=== PATIENT | female | born 1990 | race Caucasian/White ===

== ENCOUNTER 2019-07-06 19:54 | Emergency (ER) | payer MEDICAID, SELFPAY ==
[2019-07-06 20:00] VITALS: BP 135/95; PULSE 116; RESP 16; O2SAT 100
[2019-07-06 20:31] LABS: Add Urine Microscopic? NO; Appearance Urine Clear (Clear); Bilirubin Urine Negative (Negative); Blood Urine Negative (Negative); Color Urine Straw (Yellow); Glucose Urine UA Negative (Negative); Ketones Urine Negative (Negative); Leukocyte Esterase Ur Negative LEU/UL (Negative); Nitrate Urine Negative (Negative); Protein Urine Negative (Negative); Urobilinogen Urine 0.2 mg/dL (0.2-1.0)
--- NOTE | 2019-07-06 23:11 | PC.NURSE ---
ERP in with patient.
--- NOTE | 2019-07-06 23:21 | ED.GENADULT ---
HPI - General Adult General Chief complaint: Unspecified Stated complaint: swelling in arm and legs recent surgery Source: patient Mode of arrival: ambulatory Limitations: no limitations History of Present Illness HPI narrative: Hysterectomy five days ago. On June 12 she developed pain and discoloration in the right antecubital area where an IV had been in place. The pain has become worse and has enlarged to include her proximal forearm and distal medial arm. Also for the last day she has noticed some swelling in her ankles that she has never had before. She denies leg pain, chest pain and shortness of breath. She has been spending most of her time sitting in a chair per nurse practitioner orders. She now has no history of DVTs and states she was not getting daily s.c. injections of a blood thinner. Related Data Home Medications Medication Instructions Recorded Confirmed hydrocodone-acetaminophen 1 tablet PO QID PRN 07/06/19 07/06/19 ibuprofen 600 mg PO TID PRN 07/06/19 07/06/19 sennosides [Senna Lax] 8.6 mg PO HS PRN 07/06/19 07/06/19 Allergies Allergy/AdvReac Type Severity Reaction Status Date / Time No Known Allergies Allergy Verified 07/06/19 20:22 Review of Systems Constitutional: Constitutional: Denies chills and Denies fever(s) Cardiovascular: Cardiovascular: Denies chest pain Respiratory: Respiratory: Denies cough and Denies dyspnea Gastrointestinal: Gastrointestinal: Reports abdominal pain (Lower abdominal pain since surgery has been mild. ) Integumentary/Breasts: Skin/Breast: Reports system reviewed and no additional complaints, except as docu and Reports rash Exam GI: Other: Abdomen is obese. There is a bruising around the laparoscopic incision sites at the umbilicus in the right lower quadrant. the lower abdomen is tender to deep palpation, no palpable masses. Skin: Other: dusky red patch measuring approximately 20 cm along the medial aspect of the proximal forearm and distal arm on the left side. There are tender, palpable, firm cords along the medial proximal right forearm extending [facility] up the distal half of the medial arm There is no axillary tenderness. Extrem: General: edema (1+ ankle edema. No swelling or tendness of calf of thigh regions. ) Other: She has 1+ ankle edema bilateral. Course Course Emergency Course: the tender cords in the left antecubital area are thrombosed veins which extend up the medial arm. It is possible deeper veins could be involved. Has resolved I recommended starting subcu anticoagulants, symptomatic treatment and ultrasound tomorrow morning then seeing her primary care provider in the afternoon. The anticoagulant will be helpful for pain relief in treating just superficial thrombophlebitis. There are no signs or symptoms which suggest a pulmonary embolus Vital Signs Vital signs: Vital Signs Pulse Rate 116 H 07/06/19 20:00 Respiratory Rate 16 07/06/19 20:00 Blood Pressure 135/95 H 07/06/19 20:00 Pulse Oximetry 100 07/06/19 20:00 Pulse Rate 105 H 07/06/19 23:58 Respiratory Rate 20 07/06/19 23:58 Blood Pressure 117/69 07/06/19 23:58 Pulse Oximetry 98 07/06/19 23:58 Medical Decision Making MDM Narrative Medical decision making narrative: She has thrombophlebitis likely secondary to IV catheter from the left arm. Pedal edema is likely secondary to immobility post hysterectomy. Vital Signs Vital Signs: Vital Signs Pulse Rate 116 H 07/06/19 20:00 Respiratory Rate 16 07/06/19 20:00 Blood Pressure 135/95 H 07/06/19 20:00 Pulse Oximetry 100 07/06/19 20:00 Pulse Rate 105 H 07/06/19 23:58 Respiratory Rate 20 07/06/19 23:58 Blood Pressure 117/69 07/06/19 23:58 Pulse Oximetry 98 07/06/19 23:58 Lab Data Labs: Lab Results 07/06/19 Range/Units 20:25 Urine Color Straw (Yellow) Urine Appearance Clear (Clear) Urine pH 6.0 (5.0-8.0) Ur Specific [place] 1.010 (1.010-1.020)
[2019-07-06] MEDS: ENOXAPARIN 100 MG/ML SYRINGE (23:23)
--- NOTE | 2019-07-06 23:27 | PC.NURSE ---
[id number] introduced self, resumed care from MARY CARMEN Chappell. erp requested ultrasound in am. pt given time options. xray notified to schedule appointment for 10am. miguel a in xray will adjust schedule.
[2019-07-06 23:58] VITALS: BP 117/69; PULSE 105; RESP 20; O2SAT 98
== END 2019-07-07 00:01 | disposition home or self-care (01) ==
LOC: CHSED 19:59
PROVIDERS: Emergency Provider Family Medicine; PCP Family Medicine
DX: T80.1XXA Vascular complications following infusion, transfusion and therapeutic injection, initial encounter (principal); I80.8 Phlebitis and thrombophlebitis of other sites
CPT/HCPCS: 81003; 96372; 99283; J1650

== ENCOUNTER 2019-07-07 09:55 | Outpatient (CLI) | payer MEDICAID, SELFPAY ==
--- NOTE | ~2019-07-07 | US_ITS ---
EXAMINATION: US venous doppler UE RT DATE: 07/07/2019 10:38 INDICATION: Right upper limb pain. TECHNIQUE: Grayscale ultrasound images without and with compression and Doppler ultrasound images of the right upper extremity veins were obtained. COMPARISON: None. FINDINGS: The visualized portions of the right internal jugular vein, subclavian vein, axillary vein, brachial veins, cephalic vein, radial vein, and ulnar vein are patent. There is thrombus in right basilic vein . IMPRESSION: 1. No deep venous thrombosis. 2. Thrombus in right basilic vein, which is a superficial vein. Reviewed, dictated and finalized at location A.
== END 2019-07-07 09:56 | disposition home or self-care (01) ==
PROVIDERS: PCP Family Medicine; Visit Provider Family Medicine
DX: I80.8 Phlebitis and thrombophlebitis of other sites (principal)
CPT/HCPCS: 93971

== ENCOUNTER 2019-10-21 20:21 | Emergency (ER) | payer OTHER, SELFPAY ==
--- NOTE | ~2019-10-21 | CT_ITS ---
EXAMINATION: CT abdomen pelvis w con DATE: 10/21/2019 22:17 INDICATION: Right lower quadrant abdominal pain. TECHNIQUE: Computed tomography (CT) of the abdomen and pelvis was performed with 100 mL Omnipaque 350 intravenous contrast. Automated exposure control and iterative reconstruction technique were employe d. The dose-length product was 1430.78 mGy-cm. COMPARISON: CT abdomen and pelvis 05/10/2015 FINDINGS: The visualized portions of the lung bases demonstrate mild atelectasis. No pleural effusion . There is a large sliding hiatal hernia. The heart size is normal. No pericardial effusion. The live r is normal. There are changes of cholecystectomy. The spleen, pancreas, adrenal glands, and kidneys are normal. There are no dilated loops of bowel. The appendix is normal. There are no pathologically enlarged lymph nodes. There is no free intraperitoneal fluid. There is chronic anterior wedging of mu ltiple lower thoracic vertebral bodies. There is moderate thoracic spondylosis and mild lumbar spondy losis. IMPRESSION: 1. Large sliding hiatal hernia. Reviewed, dictated and finalized at location A.
[2019-10-21 20:45] VITALS: BP 141/79; PULSE 110; RESP 16; TEMP 37.1; O2SAT 100
--- NOTE | 2019-10-21 20:58 | ED.ABDPAIN ---
HPI - Abdominal Pain General Chief Complaint: Urogenital-Female Stated Complaint: pain in lower abd/lower back pain Time Seen by Provider: 10/21/19 20:59 Source: patient Mode of arrival: ambulatory Limitations: no limitations History of Present Illness HPI narrative: 29-year-old woman comes in today complaining of right-sided abdominal and flank pain that started last night. Patient states that her pain has gotten progressively worse and comes and goes. She states she is now having some low back pain with it. She denies fever, nausea, vomiting, diarrhea, dysuria, hematuria, history kidney stones, or sick exposures. She is status post hysterectomy and cholecystectomy. MD elicited complaint: abdominal pain Onset (ago): day(s) (1) Pain Consistency: constant Location: RLQ Quality: sharp Radiation: back Migration to: no migration Exacerbating factors: nothing Relieving factors: nothing Related Data Home Medications Medication Instructions Recorded Confirmed No Home Medications 10/21/19 10/21/19 Allergies Allergy/AdvReac Type Severity Reaction Status Date / Time fentanyl AdvReac Intermediate Unknown Verified 10/21/19 21:55 morphine AdvReac Intermediate Unknown Verified 10/21/19 21:55 tramadol AdvReac Intermediate Unknown Verified 10/21/19 21:55 Review of Systems Constitutional: Constitutional: Reports chills and Denies fever(s) Eyes: Eyes: Denies change in vision and Denies photophobia ENT: Denies dysphagia, Denies nasal congestion and Denies sore throat Cardiovascular: Cardiovascular: Denies chest pain and Denies radiating jaw, neck or arm pain Respiratory: Respiratory: Denies cough, Denies dyspnea and Denies wheezing Gastrointestinal: Gastrointestinal: Reports as per HPI, Reports abdominal pain, Denies constipation, Denies diarrhea, Denies nausea and Denies vomiting Genitourinary: Genitourinary: Denies hematuria, Denies nocturia and Denies dysuria Musculoskeletal: Musculoskeletal: Denies back pain, Denies arthralgias and Denies joint swelling Integumentary/Breasts: Skin/Breast: Denies pruritus, Denies erythema and Denies rash Neurologic: Denies vertigo, Denies dizziness and Denies syncope Endocrine: Endocrine: Denies polydipsia and Denies polyuria Hematologic/Lymphatic: Hematologic/Lymphatic: Denies easy bleeding and Denies easy bruising Allergic/Immunologic: Allergic/Immunologic: Denies lip swelling and Denies wheezing PMFSH Surgical History Surgical History (Updated 10/21/19 @ 22:46 by Roland Wang MD) H/O: hysterectomy S/P cholecystectomy Social History Social History (Updated 10/21/19 @ 22:46 by Roland Wang MD) Smoking status: Current every day smoker Alcohol intake: never Substance use: never Living arrangements: with family Discharge Plan Discharge Clinical Impression: Abdominal pain Qualifiers: Abdominal location: unspecified location Qualified Code(s): R10.9 - Unspecified abdominal pain Patient Disposition: Home, Self-Care Condition: Stable Instructions: Abdominal Pain (ED) Additional Instructions: Drink plenty of fluids and rest. Follow up with your doctor in the next 48 hours. If you have vomiting, worsening symptoms or new, concerning symptoms, return to the Emergency Department. Prescriptions: No Action No Home Medications RF: 0 Follow-up/Referrals: Franklyn Michele M.D. [Primary Care Provider] - Stand Alone Forms: Work/School Release IP Time of Disposition: 22:49
[2019-10-21 21:04] LABS: Add Urine Microscopic? YES; Appearance Urine Clear (Clear); Bilirubin Urine Negative (Negative); Blood Urine Negative (Negative); Color Urine Yellow (Yellow); Glucose Urine UA Negative (Negative); Ketones Urine Trace (Negative); Leukocyte Esterase Ur Negative (Negative); Nitrate Urine Negative (Negative); Protein Urine Negative (Negative); Specific Grav Ur 1.025 (1.010-1.020); pH Urine 6.5 (5.0-8.0)
[2019-10-21 21:11] LABS: RBC Urine 0-2 /hpf (0-2); Squamous Epithelial Cell Urine Many /hpf (Few); WBC Urine 0-3 /hpf (0-3)
[2019-10-21 21:12] LABS: Bacteria Urine 1+ /hpf; Mucus Urine Few /lpf
[2019-10-21] MEDS: KETOROLAC (*BKC) 60 MG/2 ML VIAL IM (21:22)
[2019-10-21 21:24] LABS: Basophils Absolute Auto 0.05 K/mm3 (0.00-0.10); Basophils Percent Auto 0.6 % (0.0-1.0); Eosinophils Absolute Auto 0.42 K/mm3 (0.02-0.50); Hemoglobin 11.2 g/dL (12.0-15.0); Immature Granulocyte Absolute 0.03 K/mm3 (0.00-0.00); Immature Granulocyte Percent A 0.4 % (0.0-0.0); Lymphocytes Absolute Auto 2.96 K/mm3 (1.10-4.50); Lymphocytes Percent Auto 35.1 % (18.0-42.0); Mean Corpuscular HGB Conc 31.1 g/dL (32.0-36.0); Mean Corpuscular Hemoglobin 24.8 pg (27.0-31.0); Mean Corpuscular Volume 79.8 fL (78.0-102.0); Mean Platelet Volume 9.1 fl (9.2-11.8); Monocytes Absolute Auto 1.13 K/mm3 (0.10-0.90); Monocytes Percent Auto 13.4 % (2.0-11.0); Neutrophils Absolute Auto 3.9 K/mm3 (1.7-7.2); Neutrophils Percent Auto 45.5 % (50.0-70.0); Platelet Count Result 365 K/mm3 (150-420); Red Blood Count 4.51 M/mm3 (4.20-5.40); Red Cell Distribution Width 17.8 % (11.6-14.4); White Blood Count 8.4 K/mm3 (4.8-10.8)
[2019-10-21 21:37] LABS: Partial Thromboplastin Time 25.7 SEC (22.3-31.6); Prothrombin Time 10.6 Seconds (9.64-11.0)
[2019-10-21 21:38] LABS: Alanine Aminotransferase 14 U/L (14-59); Alkaline Phosphatase 85 U/L (46-116); Anion Gap 11 mmol/L (8-16); Aspartate Amino Transferase < 10 U/L (15-37); Bilirubin,Total 0.1 mg/dL (0.00-1.00); Blood Urea Nitrogen 7 mg/dL (7-18); Calcium 8.3 mg/dL (8.5-10.1); Carbon Dioxide 25 mmol/L (21-32); Chloride 106 mmol/L (98-108); Estimated Glomerular Filt Rate > 60; Glucose 91 mg/dL (70-99); Lipase 110 U/L (73-393); Osmolality Calculated 292 mOsm/kg (285-295); Potassium 3.9 mmol/L (3.5-5.1); Sodium 142 mmol/L (136-145); Total Protein 6.6 g/dL (6.4-8.2)
[2019-10-21] MEDS: HYDROmorphone HCL 2 MG/ML VIAL 0.5 MG IV PUSH (22:52)
[2019-10-21] MEDS: ONDANSETRON INJ 4 MG/2 ML VIAL IV PUSH (22:53)
[2019-10-21 23:00] VITALS: BP 118/77
== END 2019-10-21 23:02 | disposition home or self-care (01) ==
PROVIDERS: Emergency Provider Emergency Medicine; PCP Family Medicine
DX: R10.9 Unspecified abdominal pain (principal)
CPT/HCPCS: 36415; 74177; 80053; 81001; 83690; 85025; 85610; 85730; 96372; 96374; 96375; 99282; 99284; J1170; J1885; J2405; Q9965

== ENCOUNTER 2021-04-03 09:04 | Emergency (ER) | payer SELFPAY ==
[2021-04-03 09:05] VITALS: BP 133/85; PULSE 86; RESP 20; TEMP 36.3; O2SAT 100
--- NOTE | 2021-04-03 09:18 | ED.BACK ---
HPI - Back Pain/Injury General Chief Complaint: Back Pain/Injury Stated Complaint: Back Pain and right arm Source: patient and RN notes reviewed Mode of arrival: ambulatory Limitations: no limitations History of Present Illness MD elicited complaint: back pain Pertinent past history: prior back pain Timing: constant Severity: moderate Quality: dull and aching Location: lumbar spine Radiation: none Exacerbating factors: movement and walking Relieving factors: none Context: other (No injury) Associated symptoms: denies other symptoms Related Data Home Medications Medication Instructions Recorded Confirmed No Home Medications 10/21/19 04/03/21 Allergies Allergy/AdvReac Type Severity Reaction Status Date / Time fentanyl AdvReac Intermediate Unknown Verified 10/21/19 21:55 morphine AdvReac Intermediate Unknown Verified 10/21/19 21:55 tramadol AdvReac Intermediate Unknown Verified 10/21/19 21:55 Review of Systems Review of Systems: All systems reviewed & are unremarkable except as noted in HPI and below Constitutional: Constitutional: Denies chills, Denies fever(s) and Denies weakness Gastrointestinal: Gastrointestinal: Reports nausea (when she has pain) Musculoskeletal: Musculoskeletal: Reports as per HPI [facility] Surgical History Surgical History H/O: hysterectomy S/P cholecystectomy Social History Social History Smoking status: Current every day smoker Alcohol intake: never Substance use: never Exam Const: General: healthy appearing and no acute distress Nutritional Appearance: obese Orientation/consciousness: patient oriented x3 HENMT: Head: normal to inspection Ears: external ears normal Eyes: Conjunctivae: conjunctivae normal Pupils: Equal, round and reactive pupils present EOM: EOMs intact bilaterally Resp: Effort & Inspection: normal respiratory effort Auscultation: clear to auscultation bilaterally Cardio: Rate: regular rate Rhythm: regular rhythm GI: GI Palp: Yes Soft to palpation and No Tenderness to palpation present (GI) Auscultation: normal bowel sounds Back/Spine/Pelvis: Cervical Spine: cervical ROM normal Thoracic/Lumbar Spine: straight leg raise negative bilaterally, pain with thoraco-lumbar ROM, paraspinal muscle tenderness bilaterally in the lower lumbar and thoraco-lumbar spasm bilaterally in the lower lumbar Skin: General skin exam: normal color Rashes: no rashes Neuro: General: patient oriented x3, moves all extremities, no meningeal signs, no focal motor deficits and CN's II-XI intact bilaterally Speech: normal speech Extrem: General: normal to inspection and no clubbing, cyanosis or edema Psych: Appearance: grossly normal and well kempt Mental Status: mental status grossly normal Affect: normal affect Attitude: cooperative Thought content: Yes Normal thought content present Course Vital Signs Vital signs: Vital Signs Temperature 36.3 C L 04/03/21 09:05 Pulse Rate 86 04/03/21 09:05 Respiratory Rate 20 04/03/21 09:05 Blood Pressure 133/85 04/03/21 09:05 Pulse Oximetry 100 04/03/21 09:05 Temperature 36.3 C L 04/03/21 09:31 Pulse Rate 86 04/03/21 09:31 Respiratory Rate 20 04/03/21 09:31 Blood Pressure 133/85 04/03/21 09:31 Pulse Oximetry 98 04/03/21 09:31 Discharge Plan Discharge Clinical Impression: Chronic bilateral low back pain Qualifiers: Sciatica presence: without sciatica Qualified Code(s): M54.50 - Low back pain, unspecified Patient Disposition: Home, Self-Care Condition: Improved Instructions: Back Pain (ED), Lower Back Exercises (ED) Additional Instructions: follow-up with her primary care if stronger pain medicine needed to control your back pain. Recommend using ibuprofen 600 mg 3 times a day as needed for back pain. Prescriptions: No Action No Home Medications RF: 0
[2021-04-03] MEDS: ORPHENADRINE CITRATE 30 MG/ML 2 ML VIAL 60 MG IM (09:30)
[2021-04-03 09:31] VITALS: BP 133/85; PULSE 86; RESP 20; TEMP 36.3; O2SAT 98
[2021-04-03] MEDS: KETOROLAC (*BKC) 60 MG/2 ML VIAL IM (09:31)
== END 2021-04-03 09:32 | disposition home or self-care (01) ==
PROVIDERS: Emergency Provider Emergency Medicine; PCP Family Medicine
DX: M54.50 Low back pain, unspecified (principal)
CPT/HCPCS: 96372; 99284; J1885; J2360

== ENCOUNTER 2021-06-13 21:22 | Emergency (ER) | payer SELFPAY ==
--- NOTE | ~2021-06-13 | CT_ITS ---
EXAMINATION: CT abdomen pelvis w con DATE: 06/13/2021 22:48 INDICATION: upper abdominal pain, epigastric pain TECHNIQUE: Computed tomography (CT) of the abdomen and pelvis was performed with 100 mL Omnipaque-300 intravenous contrast. Automated exposure control and iterative reconstruction technique were employe d. The dose-length product was 1033.05 mGy-cm. COMPARISON: 10/21/2019. FINDINGS: Lower thorax: Large hiatal hernia. Liver: Normal. Biliary/Gallbladder: Gallbladder is normal. Mild intrahepatic and extra hepatic biliary duct dilatati on, likely secondary to prior cholecystectomy. Spleen: Normal. Pancreas: No mass or duct dilation. Adrenals:No mass. Kidneys: No mass, stone, or hydronephrosis. GI tract: No small or large bowel dilation. Normal appendix. Mesentery/Peritoneum: No ascites, mass, or free air. Retroperitoneum: No mass. Pelvis: Uterus is absent, otherwise pelvic organs are within normal limits. Soft Tissues: Soft tissues and body wall unremarkable. Bones: No acute osseous finding. IMPRESSION: No acute abdominopelvic process. Reviewed, dictated and finalized at location K.
[2021-06-13 21:30] VITALS: BP 137/86; PULSE 74; RESP 20; TEMP 36.1; O2SAT 99
--- NOTE | 2021-06-13 21:44 | ED.ABDPAIN ---
HPI - Abdominal Pain General Chief Complaint: Abdominal Pain Stated Complaint: stomach pain to back pain Time Seen by Provider: 06/13/21 21:44 Source: patient and RN notes reviewed Mode of arrival: ambulatory Limitations: no limitations History of Present Illness MD elicited complaint: abdominal pain Pertinent past history: none Onset (ago): minute(s) (30) Pain Consistency: constant Location: epigastric, LUQ and RUQ Severity: severe Quality: stabbing and sharp Radiation: none Migration to: no migration Exacerbating factors: movement Relieving factors: nothing Associated symptoms: nausea Related Data Allergies Allergy/AdvReac Type Severity Reaction Status Date / Time fentanyl AdvReac Intermediate Unknown Verified 10/21/19 21:55 morphine AdvReac Intermediate Unknown Verified 10/21/19 21:55 tramadol AdvReac Intermediate Unknown Verified 10/21/19 21:55 Review of Systems Review of Systems: All systems reviewed & are unremarkable except as noted in HPI and below Constitutional: Constitutional: Denies chills and Denies fever(s) Cardiovascular: Cardiovascular: Denies chest pain and Denies radiating jaw, neck or arm pain Respiratory: Respiratory: Denies dyspnea Gastrointestinal: Gastrointestinal: Denies constipation, Denies diarrhea and Denies vomiting PMFSH Surgical History Surgical History H/O: hysterectomy S/P cholecystectomy Social History Social History Smoking status: Current every day smoker Alcohol intake: never Substance use: never Exam Const: General: no acute distress, alert and ill appearing acutely Nutritional Appearance: well nourished Orientation/consciousness: patient oriented x3 HENMT: Head: normal to inspection Ears: external ears normal Face and sinus: normal facial exam Mouth: Yes moist mucous membranes Eyes: Conjunctivae: conjunctivae normal Pupils: Equal, round and reactive pupils present EOM: EOMs intact bilaterally Neck: Neck: normal visual inspection Resp: Effort & Inspection: normal respiratory effort Auscultation: clear to auscultation bilaterally Cardio: Rate: regular rate Rhythm: regular rhythm GI: GI Palp: Yes Soft to palpation, Yes Tenderness to palpation present (GI) ( moderate across the upper abdomen), Yes Guarding due to palpation present (GI) ( moderate across the upper abdomen) and No Rebound tenderness present Auscultation: normal bowel sounds Back/Spine/Pelvis: Cervical Spine: cervical ROM normal Thoracic/Lumbar Spine: thoraco-lumbar ROM normal Skin: General skin exam: normal color Rashes: no rashes Neuro: General: patient oriented x3, moves all extremities, no focal motor deficits and CN's II-XI intact bilaterally Speech: normal speech Gait exam (Neuro): Normal gait present Extrem: General: normal to inspection and no clubbing, cyanosis or edema Psych: Appearance: grossly normal and well kempt Mental Status: mental status grossly normal Affect: normal affect Attitude: cooperative Thought content: Yes Normal thought content present Course Vital Signs Vital signs: Vital Signs Temperature 36.1 C L 06/13/21 21:30 Pulse Rate 74 06/13/21 21:30 Respiratory Rate 20 06/13/21 21:30 Blood Pressure 137/86 06/13/21 21:30 Pulse Oximetry 99 06/13/21 21:30 Temperature 36.1 C L 06/13/21 21:30 Pulse Rate 87 06/13/21 23:41 Respiratory Rate 18 06/13/21 23:41 Blood Pressure 121/91 H 06/13/21 23:41 Pulse Oximetry 98 06/13/21 23:41 MDM - Abdominal Pain Lab Data Attestation: I reviewed the patient's lab results. Result diagrams: 06/13/21 21:56 06/13/21 21:56 Labs: Lab Results 06/13/21 06/13/21 06/13/21 Range/Units 21:56 21:56 21:56 WBC 12.4 H (4.8-10.8) K/mm3 RBC 4.59 (4.20-5.40) M/mm3 Hgb 13.6 (12.0-15.0) g/dL Hct 42.6 (35.0-49.0) % MCV 92.8 (78.0-102.0) fL
[2021-06-13] MEDS: HYDROmorphone HCL INJ (*CRX) 2 MG/ML VIAL 1 MG IV PUSH (22:08)
[2021-06-13 22:14] LABS: Basophils Absolute Auto 0.07 K/mm3 (0.00-0.10); Basophils Percent Auto 0.6 % (0.0-1.0); Eosinophils Absolute Auto 0.15 K/mm3 (0.02-0.50); Eosinophils Percent Auto 1.2 % (1.0-6.0); Hematocrit 42.6 % (35.0-49.0); Hemoglobin 13.6 g/dL (12.0-15.0); Immature Granulocyte Absolute 0.03 K/mm3 (0.00-0.00); Immature Granulocyte Percent A 0.2 % (0.0-0.0); Lymphocytes Absolute Auto 5.47 K/mm3 (1.10-4.50); Lymphocytes Percent Auto 44.3 % (18.0-42.0); Mean Corpuscular HGB Conc 31.9 g/dL (32.0-36.0); Mean Corpuscular Hemoglobin 29.6 pg (27.0-31.0); Mean Corpuscular Volume 92.8 fL (78.0-102.0); Mean Platelet Volume 9.4 fl (9.2-11.8); Monocytes Absolute Auto 0.96 K/mm3 (0.10-0.90); Monocytes Percent Auto 7.8 % (2.0-11.0); Neutrophils Absolute Auto 5.7 K/mm3 (1.7-7.2); Neutrophils Percent Auto 45.9 % (50.0-70.0); Platelet Count Result 343 K/mm3 (150-420); Red Blood Count 4.59 M/mm3 (4.20-5.40); Red Cell Distribution Width 15.5 % (11.6-14.4); White Blood Count 12.4 K/mm3 (4.8-10.8)
[2021-06-13 22:16] LABS: Appearance Urine Clear (Clear); Bilirubin Urine Negative (Negative); Color Urine Light Yellow (Yellow); Glucose Urine UA Negative (Negative); Ketones Urine Negative (Negative); Leukocyte Esterase Ur Negative LEU/UL (Negative); Nitrate Urine Negative (Negative); Protein Urine Negative (Negative); Urobilinogen Urine 0.2 mg/dL (0.2-1.0); pH Urine 5.5 (5.0-8.0)
[2021-06-13 22:23] LABS: Add Urine Microscopic? YES; Blood Urine Trace-Intact (Negative)
[2021-06-13 22:24] LABS: Bacteria Urine 1+ /hpf; RBC Urine 0-2 /hpf (0-2); Squamous Epithelial Cell Urine Rare /hpf (Few); WBC Urine 0-3 /hpf (0-3)
[2021-06-13 22:32] LABS: Alanine Aminotransferase 19 U/L (14-59); Albumin Level 3.1 g/dL (3.4-5.0); Alkaline Phosphatase 104 U/L (46-116); Anion Gap 9 mmol/L (8-16); Aspartate Amino Transferase 37 U/L (15-37); Bilirubin,Total 0.3 mg/dL (0.00-1.00); Blood Urea Nitrogen 5 mg/dL (7-18); Calcium 8.5 mg/dL (8.5-10.1); Carbon Dioxide 26 mmol/L (21-32); Chloride 103 mmol/L (98-108); Estimated CRCL calculation 93 ml/min; Estimated Glomerular Filt Rate > 60; Glucose 104 mg/dL (70-99); Lipase 285 U/L (73-393); Osmolality Calculated 283 mOsm/kg (285-295); Potassium 3.6 mmol/L (3.5-5.1); Sodium 138 mmol/L (136-145); Total Protein 6.7 g/dL (6.4-8.2)
[2021-06-13 22:34] LABS: CRP < 0.2 mg/dL (0.0-0.9)
[2021-06-13 22:38] LABS: Lactic Acid Reflex 1.3 mmol/L (0.4-2.0)
[2021-06-13] MEDS: PANTOPRAZOLE 40 MG TABLET PO (23:38)
[2021-06-13 23:41] VITALS: BP 121/91; PULSE 87; RESP 18; O2SAT 98
== END 2021-06-13 23:51 | disposition home or self-care (01) ==
PROVIDERS: Emergency Provider Emergency Medicine; PCP Family Medicine
DX: K44.9 Diaphragmatic hernia without obstruction or gangrene (principal)
CPT/HCPCS: 36415; 74177; 80053; 81001; 83605; 83690; 85025; 86140; 96374; 99284; A9270; J1170; Q9967

== ENCOUNTER 2021-12-07 13:18 | Emergency (ER) | payer SELFPAY ==
--- NOTE | 2021-12-07 13:30 | ED.DENTAL ---
HPI - Dental/Oral General Chief complaint: Dental/Oral Stated complaint: toothache Time Seen by Provider: 12/07/21 13:30 Source: patient and RN notes reviewed Mode of arrival: ambulatory Limitations: no limitations History of Present Illness Complaint: tooth pain Onset (ago): day(s) (1) Duration: constant Severity: mild Relieving factors: nothing Exacerbating factors: nothing Context: history of dental caries Associated symptoms: other ( nausea and facial swelling) Related Data Allergies Allergy/AdvReac Type Severity Reaction Status Date / Time fentanyl AdvReac Intermediate Unknown Verified 12/07/21 13:58 morphine AdvReac Intermediate Unknown Verified 12/07/21 13:58 tramadol AdvReac Intermediate Unknown Verified 12/07/21 13:58 Review of Systems Review of Systems: All systems reviewed & are unremarkable except as noted in HPI and below Constitutional: Constitutional: Denies chills and Denies fever(s) PMFSH Past Medical History Medical History (Updated 12/07/21 @ 13:44 by Nitin Whaley MD) Anxiety and depression Surgical History Surgical History (Updated 12/07/21 @ 13:31 by Nitin Whaley MD) H/O: hysterectomy History of total abdominal hysterectomy Hx of cholecystectomy S/P cholecystectomy Social History Social History Smoking status: Current every day smoker Alcohol intake: never Substance use: never Exam Const: General: healthy appearing, no acute distress and alert Nutritional Appearance: well nourished and obese Orientation/consciousness: patient oriented x3 Limitations: no limitations Other: Female nurse in room during examination. HENMT: Head: normal to inspection Ears: hearing grossly normal bilaterally Face/Nose/Sinus: Normal external nose present, Normal nasal mucous membranes and turbinates present and edema ( Swelling left maxilla tender to palpation) Teeth and gingiva: caries and poor dentition Teeth image: 1. swelling along the gumline with erythema and tenderness Throat: posterior oropharynx normal Eyes: Conjunctivae: conjunctivae normal Pupils: Equal, round and reactive pupils present EOM: EOMs intact bilaterally Neck: Neck: normal visual inspection and lymphadenopathy left anterior cervical soft, mobile and shotty; nontender Resp: Effort & Inspection: normal respiratory effort Auscultation: clear to auscultation bilaterally Cardio: Rate: regular rate Rhythm: regular rhythm GI: GI Palp: Yes Soft to palpation and No Tenderness to palpation present (GI) Auscultation: normal bowel sounds Back/Spine/Pelvis: Cervical Spine: cervical ROM normal Thoracic/Lumbar Spine: thoraco-lumbar ROM normal Skin: General skin exam: normal color Rashes: no rashes Neuro: General: patient oriented x3, moves all extremities, no focal motor deficits and CN's II-XI intact bilaterally Speech: normal speech Gait exam (Neuro): Normal gait present Extrem: General: normal to inspection and no clubbing, cyanosis or edema Psych: Mental Status: mental status grossly normal Affect: normal affect Attitude: cooperative Course Vital Signs Vital signs: Vital Signs Temperature 36.7 C 12/07/21 13:31 Pulse Rate 96 12/07/21 13:31 Respiratory Rate 18 12/07/21 13:31 Blood Pressure 146/91 H 12/07/21 13:31 Pulse Oximetry 98 12/07/21 13:31 Oxygen Delivery Room Air 12/07/21 13:31 Temperature 36.7 C 12/07/21 13:31 Pulse Rate 96 12/07/21 13:31 Respiratory Rate 18 12/07/21 13:31 Blood Pressure 146/91 H 12/07/21 13:31 Pulse Oximetry 98 12/07/21 13:31 Oxygen Delivery Room Air 12/07/21 13:31 Discharge Plan Discharge Clinical Impression: Dental abscess Patient Disposition: Home, Self-Care Condition: Stable Instructions: Antibiotic Form, Dental Abscess (ED) Additional Instructions: Try to get into a dentist for further treatment. Prescriptions: New amoxicillin 500 mg
[2021-12-07 13:31] VITALS: BP 146/91; PULSE 96; RESP 18; TEMP 36.7; O2SAT 98
[2021-12-07 13:58] VITALS: BP 120/58; PULSE 98; RESP 20; TEMP 37.1; O2SAT 99
--- NOTE | 2021-12-07 14:40 | PC.NURSE ---
Accompanied Judd WICK into patient room and observed MD physical assessment of female patient. MD assessed HEENT, lung, bowel, and heart sounds.
== END 2021-12-07 13:58 | disposition home or self-care (01) ==
LOC: CHSED 13:49
PROVIDERS: Emergency Provider Emergency Medicine; PCP Family Medicine
DX: K04.7 Periapical abscess without sinus (principal)
CPT/HCPCS: 99283

== ENCOUNTER 2022-03-13 00:35 | Emergency (ER) | payer BC, SELFPAY ==
--- NOTE | ~2022-03-13 | XR_ITS ---
Left wrist Technique: PA, oblique, lateral, and ulnar deviation views were obtained. Clinical History: Pain Findings: No acute fracture or dislocation is seen. Osseous alignment is anatomic. Joint spaces are p reserved. Soft tissues are unremarkable. Impression: Unremarkable left wrist radiographs. Reviewed, dictated and finalized at location . LINE CSR Impression: Unremarkable left wrist radiographs.
[2022-03-13 00:38] VITALS: BP 132/77; PULSE 85; RESP 18; TEMP 36.9; O2SAT 99
--- NOTE | 2022-03-13 00:53 | ED.UPPEXIN ---
HPI - Extremity Injury (Upper) General Chief Complaint: Extremity Problem,Nontraumatic Stated Complaint: Wrist Pain Source: patient and RN notes reviewed Mode of arrival: ambulatory Limitations: no limitations History of Present Illness HPI narrative: patient states that she was working on her tire and trying to twist the knots on the wheel when she had sudden onset of pain in her right wrist at the base of her thumb at the wrist. No direct trauma that she recalls. complaint: injury to: left and wrist Onset (ago): hour(s) (9) Other Extremity Injury: Left: wrist Other injuries: none Handedness: right Place: outdoors Severity: moderate Relieving factors: cold therapy Exacerbating factors: movement of extremity Related Data Home Medications Medication Instructions Recorded Confirmed No Home Medications 03/13/22 03/13/22 Allergies Allergy/AdvReac Type Severity Reaction Status Date / Time fentanyl AdvReac Intermediate Unknown Verified 12/07/21 13:58 morphine AdvReac Intermediate Unknown Verified 12/07/21 13:58 tramadol AdvReac Intermediate Unknown Verified 12/07/21 13:58 Review of Systems Review of Systems: All systems reviewed & are unremarkable except as noted in HPI and below PMFSH Past Medical History Medical History Anxiety and depression Surgical History Surgical History H/O: hysterectomy History of total abdominal hysterectomy Hx of cholecystectomy S/P cholecystectomy Social History Social History Smoking status: Current every day smoker Alcohol intake: never Substance use: never Living arrangements: with family Exam Const: General: healthy appearing, no acute distress and alert Nutritional Appearance: well nourished Orientation/consciousness: patient oriented x3 Limitations: no limitations HENMT: Head: normal to inspection Ears: external ears normal Eyes: Conjunctivae: conjunctivae normal Pupils: Equal, round and reactive pupils present EOM: EOMs intact bilaterally Neck: Neck: normal visual inspection Resp: Effort & Inspection: normal respiratory effort Auscultation: clear to auscultation bilaterally Cardio: Rate: regular rate Rhythm: regular rhythm GI: GI Palp: Yes Soft to palpation and No Tenderness to palpation present (GI) Auscultation: normal bowel sounds Back/Spine/Pelvis: Cervical Spine: cervical ROM normal Thoracic/Lumbar Spine: thoraco-lumbar ROM normal Skin: General skin exam: normal color Rashes: no rashes Neuro: General: patient oriented x3, moves all extremities, no focal motor deficits and CN's II-XI intact bilaterally Speech: normal speech Gait exam (Neuro): Normal gait present Extrem: General: normal exam except as noted and no clubbing, cyanosis or edema Left upper extremity: hand neuromotor exam normal, tenderness of the thumb ( Base of the 1st metacarpal) and normal ROM of fingers Psych: Mental Status: mental status grossly normal Affect: normal affect Attitude: cooperative Course Vital Signs Vital signs: Vital Signs Temperature 36.9 C 03/13/22 00:38 Pulse Rate 85 03/13/22 00:38 Respiratory Rate 18 03/13/22 00:38 Blood Pressure 132/77 03/13/22 00:38 Pulse Oximetry 99 03/13/22 00:38 Oxygen Delivery Room Air 03/13/22 00:38 Temperature 36.7 C 03/13/22 01:30 Pulse Rate 69 03/13/22 01:30 Respiratory Rate 20 03/13/22 01:30 Blood Pressure 133/99 H 03/13/22 01:30 Pulse Oximetry 99 03/13/22 01:30 Oxygen Delivery Room Air 03/13/22 01:30 Procedures Orthopedic Splinting/Casting Injury #1: Splinting/Casting Date: 03/13/22 Side: left Upper Extremity Injury Location: wrist Upper Extremity Immobilizer: Phani wrap Pre-Procedure Neuro Vascular Exam: normal Post-Procedure Neuro Vascular Exam: normal MDM - Extr
[2022-03-13 01:30] VITALS: BP 133/99; PULSE 69; RESP 20; TEMP 36.7; O2SAT 99
== END 2022-03-13 01:32 | disposition home or self-care (01) ==
PROVIDERS: Emergency Provider Emergency Medicine
DX: S63.502A Unspecified sprain of left wrist, initial encounter (principal); F17.200 Nicotine dependence, unspecified, uncomplicated; X50.0XXA Overexertion from strenuous movement or load, initial encounter
CPT/HCPCS: 73110; 99283

== ENCOUNTER 2022-06-20 14:06 | Emergency (ER) | payer BC, SELFPAY ==
[2022-06-20 14:10] VITALS: BP 137/98; PULSE 103; RESP 18; TEMP 36.9; O2SAT 99
--- NOTE | 2022-06-20 14:42 | ED.SKABFB ---
HPI - Skin/Abscess/Foreign Bdy General Chief complaint: Skin/Abscess/Foreign Body Stated complaint: Rash Time Seen by Provider: 06/20/22 14:28 Source: patient Mode of arrival: ambulatory Limitations: no limitations History of Present Illness HPI narrative: 31-year-old white female developed a rash in the right side of her chest wall about 4 5 days ago. It itches, painful, and she reports adjust her vision 1 long stricture. She did have chickenpox when she was young, has not had her shingles vaccine. Denies any fever chills, sinus drainage, sore throat, cough, shortness of breath, chest pain, palpitations, near-syncope or syncope. Denies abdominal pain, nausea vomiting, diarrhea constipation, dysuria urgency or MD complaint: rash Related Data Allergies Allergy/AdvReac Type Severity Reaction Status Date / Time fentanyl AdvReac Intermediate Unknown Verified 06/20/22 14:37 morphine AdvReac Intermediate Unknown Verified 06/20/22 14:37 tramadol AdvReac Intermediate Unknown Verified 06/20/22 14:37 Review of Systems Review of Systems: All systems reviewed & are unremarkable except as noted in HPI and below PMFSH Past Medical History Medical History Anxiety and depression Surgical History Surgical History H/O: hysterectomy History of total abdominal hysterectomy Hx of cholecystectomy S/P cholecystectomy Social History Social History Smoking status: Current every day smoker Alcohol intake: never Substance use: never Living arrangements: with family Exam Narrative: pleasant, well oriented, no acute distress,i Const: General: cooperative, healthy appearing, comfortable, no acute distress, well developed and alert Nutritional Appearance: overweight Orientation/consciousness: oriented to person, oriented to place and oriented to time Limitations: no limitations HENMT: Head: normal to inspection Face and sinus: normal facial exam Teeth and gingiva: caries and poor dentition Eyes: General: appearance normal, both eyes and all related structures Pupils: Equal, round and reactive pupils present EOM: EOMs intact bilaterally Neck: Neck: normal visual inspection and full ROM Chest: Chest palpation & inspection: normal inspection of the chest Other: patient has a dermatomal distribution of the right anterior lateral posterior chest wall at about the time she ate her distribution of erythematous, patchy, somewhat decreased somewhat excoriated rash consistent with shingles she Resp: Effort & Inspection: normal respiratory effort and able to speak in complete sentences GI: Inspection: obesity Skin: General skin exam: normal color Lesions: lesion noted Rashes: rashes noted Other: as noted above Neuro: General: patient oriented x3, gait normal, tone normal and moves all extremities Cranial nerves: Yes CN's II-XII intact bilaterally Speech: normal speech Gait exam (Neuro): Normal gait present Extrem: General: normal to inspection, full ROM, capillary refill normal and normal exam except as noted Psych: Appearance: grossly normal Mental Status: mental status grossly normal Speech and movement: Normal speech and movement present Affect: normal affect Attitude: cooperative Thought process: Normal thought process present Thought content: Yes Normal thought content present Course Course Emergency Course: differential diagnosis there is straight forward, including shingles, and will treat as such Vital Signs Vital signs: Vital Signs Oxygen Delivery Room Air 06/20/22 14:06 Temperature 36.9 C 06/20/22 14:10 Pulse Rate 103 H 06/20/22 14:10 Respiratory Rate 18 06/20/22 14:10 Blood Pressure 137/98 H 06/20/22 14:10 Pulse Oximetry 99 06/20/22 14:10 Oxygen Delivery Room Air 06/20/22 14:10 Discharg
== END 2022-06-20 15:08 | disposition home or self-care (01) ==
LOC: CHSED 15:09
PROVIDERS: Emergency Provider Emergency Medicine; PCP Family Medicine
DX: B02.9 Zoster without complications (principal); F41.9 Anxiety disorder, unspecified; F32.A Depression, unspecified; Z78.0 Asymptomatic menopausal state; F17.200 Nicotine dependence, unspecified, uncomplicated
CPT/HCPCS: 99283

== ENCOUNTER 2022-06-23 14:54 | Emergency (ER) | payer BC, SELFPAY ==
[2022-06-23 14:54] VITALS: BP 143/81; PULSE 78; RESP 18; TEMP 36.9; O2SAT 100
--- NOTE | 2022-06-23 15:16 | ED.ANIMALBIT ---
HPI - Animal Bite General Chief Complaint: Animal Bite Stated Complaint: Dog bite Time Seen by Provider: 06/23/22 15:16 History of Present Illness HPI narrative: 31-year-old female patient is here with complaints of a dog bite to her right forearm. Patient states that she tried to pet a dog who was on leash and the dog bit her. Obviously the dog fell provoked. She is not sure about her tetanus status. The dog apparently is available for observation. Bleeding is controlled. Related Data Allergies Allergy/AdvReac Type Severity Reaction Status Date / Time fentanyl AdvReac Intermediate Unknown Verified 06/20/22 14:37 morphine AdvReac Intermediate Unknown Verified 06/20/22 14:37 tramadol AdvReac Intermediate Unknown Verified 06/20/22 14:37 Review of Systems Review of Systems: All systems reviewed & are unremarkable except as noted in HPI and below PMFSH Past Medical History Medical History Anxiety and depression Surgical History Surgical History H/O: hysterectomy History of total abdominal hysterectomy Hx of cholecystectomy S/P cholecystectomy Social History Social History Smoking status: Current every day smoker Alcohol intake: never Substance use: never Living arrangements: with family Exam Narrative: Alert female patient who is more anxious than in any acute distress. Vital signs are stable. HEENT appears normal. Patient is partially edentulous. No respiratory distress. Breath sounds are clear bilaterally. Heart tones are regular right arm is examined and patient has a 5 cm v-shaped laceration just below the antecubital area with some abrasions caudally in the 4 upper arm on the anterior aspect. The bleeding is controlled. Subcutaneous fat is visible and the laceration is full-thickness through skin and subcutaneous tissue. No muscles or tendons are involved. No other abrasions or wounds are noted. Distally the function of the hand is intact. Patient has good range of motion at the elbow and wrist and all interphalangeal and metacarpal pharyngeal joint. Distal neurovascular status to the arm and hand is intact. Rest of the physical examination is unremarkable. Course Course Emergency Course: Patient's tetanus status has been updated. And the laceration repair has been done. And will control has been notified. Vital Signs Vital signs: Vital Signs Temperature 36.9 C 06/23/22 14:54 Pulse Rate 78 06/23/22 14:54 Respiratory Rate 18 06/23/22 14:54 Blood Pressure 143/81 H 06/23/22 14:54 Pulse Oximetry 100 06/23/22 14:54 Oxygen Delivery Room Air 06/23/22 14:54 Temperature 36.9 C 06/23/22 14:54 Pulse Rate 78 06/23/22 14:54 Respiratory Rate 18 06/23/22 14:54 Blood Pressure 143/81 H 06/23/22 14:54 Pulse Oximetry 100 06/23/22 14:54 Oxygen Delivery Room Air 06/23/22 14:54 Procedures Laceration Laceration 1: Date: 06/23/22 Time: 17:03 Site: upper extremity ( Right forearm near antecubital fossa on anteriomedial surface) Size (cm): 6 Description: flap and irregular Depth: simple, single layer Local Anesthetic: lidocaine 1% Amount of anesthesia used (mL): 10 Pre-repair: wound explored and irrigated ====== Skin Level ====== Skin layer closed with: nylon Size (cm): 3-0 Number of sutures: 4 Technique: simple, interrupted ====== Subcutaneous Layer ====== Subcutaneous layer closed with: vicryl Size: 5-0 Number of sutures: 7 Technique: simple, interrupted ====== Muscle Layer ====== ====== Tendon Layer ====== Discharge Plan Discharge Prescriptions: No Action famciclovir 500 mg tablet 500 mg PO Q8H Qty: 21 0RF prednisone 5 mg tablet 5 m
[2022-06-23] MEDS: TETANUS,DIPHTHERIA,AC PERTUSSIS ADULT 0.5 ML (ADACEL) IM (16:17)
[2022-06-23] MEDS: LIDOCAINE HCL 1% LOCAL INJ 10 ML VIAL 5 ML INFILTRATE (16:41)
[2022-06-23] MEDS: NEOMYCIN/POLYMYXIN/BACITRACIN OINTMENT PACKET 2 PACKET TOPICAL (16:50)
[2022-06-23 17:05] VITALS: BP 114/78; PULSE 61; RESP 20; O2SAT 97
--- NOTE | 2022-06-23 17:36 | PC.NURSE ---
animal bite report sent to [facility] animal control. spoke with lupis bed machine operator # [id number]. faxed report to [phone]
== END 2022-06-23 17:11 | disposition home or self-care (01) ==
PROVIDERS: Emergency Provider Emergency Medicine; PCP Family Medicine
DX: S51.811A Laceration without foreign body of right forearm, initial encounter (principal); F17.200 Nicotine dependence, unspecified, uncomplicated; Z23 Encounter for immunization; W54.0XXA Bitten by dog, initial encounter
CPT/HCPCS: 12032; 90471; 90715; 99283

== ENCOUNTER 2022-06-28 12:58 | Emergency (ER) | payer BC, SELFPAY ==
[2022-06-28 12:58] VITALS: BP 116/77; PULSE 95; RESP 18; TEMP 36.8; O2SAT 100
--- NOTE | 2022-06-28 13:04 | ED.GENADULT ---
HPI - General Adult General Chief complaint: Wound/Laceration Stated complaint: stitch popped on right arm Time Seen by Provider: 06/28/22 13:04 Source: patient Mode of arrival: ambulatory Limitations: no limitations History of Present Illness HPI narrative: 31-year-old female presented to the ER on 06/23/2022 after a dog bite on the right forearm. The patient received some stitches and tetanus toxoid. Subsequently the patient was started on amoxicillin. Today the patient felt a stitch pop on the right arm. She complains of ongoing pain. No discharge. Onset (ago): day(s) ( Stitches were placed 5 days ago.) Location: right and upper extremity Severity: mild Quality: aching Relieving factors: none Exacerbating factors: none Associated symptoms: denies other symptoms Related Data Allergies Allergy/AdvReac Type Severity Reaction Status Date / Time fentanyl AdvReac Intermediate Unknown Verified 06/28/22 13:06 morphine AdvReac Intermediate Unknown Verified 06/28/22 13:06 tramadol AdvReac Intermediate Unknown Verified 06/28/22 13:06 Review of Systems Review of Systems: All systems reviewed & are unremarkable except as noted in HPI and below Constitutional: Constitutional: Reports as per HPI and Reports no additional constitutional complaints PMFSH Past Medical History Medical History Anxiety and depression Surgical History Surgical History H/O: hysterectomy History of total abdominal hysterectomy Hx of cholecystectomy S/P cholecystectomy Social History Social History Smoking status: Current every day smoker Alcohol intake: never Substance use: never Living arrangements: with family Exam Const: General: healthy appearing and no acute distress Orientation/consciousness: patient oriented x3 Limitations: no limitations HENMT: Head: normal to inspection Ears: external ears normal Face/Nose/Sinus: Normal external nose present Face and sinus: normal facial exam Mouth: Yes Normal oral and palatal mucosa present Throat: posterior oropharynx normal Eyes: Conjunctivae: conjunctivae normal Pupils: Equal, round and reactive pupils present EOM: EOMs intact bilaterally Direct Ophthalmoscopy: no photophobia Neck: Neck: normal visual inspection, no lymphadenopathy and no meningeal signs Chest: Chest palpation & inspection: normal inspection of the chest Resp: Effort & Inspection: normal respiratory effort Auscultation: clear to auscultation bilaterally Cardio: Rate: regular rate Rhythm: regular rhythm GI: GI Palp: Yes Soft to palpation : General: Yes no CVA tenderness Back/Spine/Pelvis: Back: no CVA tenderness Skin: General skin exam: normal color Rashes: no rashes Other: Patient has a v-shaped laceration on the right forearm with stitches at the edges. No drainage from the stitches. No erythema around the laceration site. Neuro: General: patient oriented x3, moves all extremities, no meningeal signs, no focal motor deficits and CN's II-XI intact bilaterally Cranial nerves: Yes Nystagmus not present Speech: normal speech Gait exam (Neuro): Normal gait present Extrem: General: normal to inspection, no clubbing, cyanosis or edema and no pedal edema Psych: Mental Status: mental status grossly normal Affect: normal affect Attitude: cooperative Course Course Emergency Course: Right forearm laceration status post stitches no evidence of infection noted Vital Signs Vital signs: Vital Signs Temperature 36.8 C 06/28/22 12:58 Pulse Rate 95 06/28/22 12:58 Respiratory Rate 18 06/28/22 12:58 Blood Pressure 116/77 06/28/22 12:58 Pulse Oximetry 100 06/28/22 12:58 Oxygen Delivery Room Air 06/28/22 12:58 Temperature 36.8 C 06/28/22 12:58 Pulse Rate 95 06/28/22 12:58 Respiratory Rate 18 06/28/22 12:58
== END 2022-06-28 13:30 | disposition home or self-care (01) ==
PROVIDERS: Emergency Provider Internal Medicine Critical Care Medicine; PCP Family Medicine
DX: S51.851D Open bite of right forearm, subsequent encounter (principal); W54.0XXD Bitten by dog, subsequent encounter
CPT/HCPCS: 99282